=== PATIENT | female | born 1960 ===

== ENCOUNTER 2025-05-10 12:00 | Inpatient (IN) | payer OTHER ==
[~2025-05-10] VITALS: Ht 121.9 cm; Wt 67.6 kg
[~2025-05-10 12:00] MED LIST: CLONAZEPAM1 MG PO; LEVO-T50 MCG PO; PROAIR RESPICL90 MCG IH; RESTORIL30 M1 PO; ZESTORETIC 20-1 EACH PO; ZOCOR40 MG PO
[2025-05-10] MEDS ORDERED: NORVASC5 MG PO (12:01)
[2025-05-10] MEDS ORDERED: ROZEREM8 MG PO (12:01)
[2025-05-10 12:38] LABS: BASO % 1.0 % (0.1-1.2); EOS # 0.22 (0.04-0.54); EOS % 2.7 % (0.7-7.0); LYMPH # 2.83 (1.18-3.74); LYMPH % 35.3 % (19.3-53.1); MEAN PLATELET VOLUME 9.70 fl (9.4-12.4); MONO # 0.69 (0.24-0.82); MONO % 8.6 % (4.7-12.5); NEUT # 4.19 (1.56-6.13); NEUT % 52.3 % (34.0-71.1); RED CELL DISTRIBUTION WIDTH 13.6 % (11.6-14.4)
[2025-05-10 12:39] LABS: URINE APPEARANCE Clear; URINE BILIRRUBIN Negative (NEGATIVE); URINE BLOOD Small; URINE COLOR Yellow; URINE GLUCOSE Negative (NEGATIVE); URINE KETONE Negative (NEGATIVE); URINE LEUKOCYTE Negative; URINE NITRATE Negative; URINE PROTEIN Negative (NEGATIVE); URINE UROBILINOGEN 0.2 E.U./dl
[2025-05-10 12:43] LABS: URINE BACTERIA 35.9 uL (0.0-1933); URINE EPITHELIAL CELLS 6.6 uL (0.0-38.8); URINE RBC 37.3 uL (0.0-20.8); URINE WBC 3.9 uL (0.0-23.2)
[2025-05-10 12:48] LABS: URINE CAST 0.43 uL (0.0-1.40)
[2025-05-10 13:05] LABS: INR 0.99
[2025-05-10 13:06] LABS: ALT/SGPT 17.0 U/L (12-78); AST/SGOT 16.0 U/L (15-37); BILIRUBIN TOTAL 0.38 mg/dL (0.3-1.2); BUN CREA RATIO 19.0 (7.0-25.0); CREATININE SERUM 0.78 mg/dL (0.55-1.02); GFR 74.12; GLOBULINA 3.9 G/DL (2.4-3.5); GLUCOSE FASTING 98.0 mg/dL (65-100); OSMOLALITY SERUM 284.0 MOSM/KG (275-295)
[2025-05-17] MEDS ORDERED: METRONIDAZOLE/SODIUM CHLORIDE 500 MG/100 ML PIGGYBACK IV ONE (07:03)
[2025-05-17] MEDS ORDERED: CEFTRIAXONE SODIUM 2,000 MG VIAL ONE (07:03)
[2025-05-17] MEDS ORDERED: LIDOCAINE HCL 1%/EPINEPHRINE 20ML VIAL IJ ONE (07:45)
[2025-05-17] MEDS ORDERED: BUPIVACAINE HCL/Mpf 0.5% 10ML VIAL ONE (07:45)
[2025-05-17] MEDS ORDERED: SUGAMMADEX SODIUM 200 MG/2 ML VIAL IV ONE (10:19)
[2025-05-17] MEDS ORDERED: ACETAMINOPHEN 500 MG GEL..CAP PO SCH (10:49)
[2025-05-17] MEDS ORDERED: ONDANSETRON HCL 2 MG/ML VIAL IV PRN (11:00)
[2025-05-17] MEDS ORDERED: OxyCODONE HCL 5 MG TABLET (ROXICODONE) PO PRN (11:00)
[2025-05-17] MEDS ORDERED: RINGERS SOLUTION,LACTATED 1,000 ML IV SCH (11:00)
[2025-05-17] MEDS ORDERED: MORPHINE SULFATE 4 MG/ML CARTRIDGE IV PRN (11:00)
[2025-05-17] MEDS ORDERED: DEXTROSE 50 % IN WATER 0.5 G/ML DISP.SYRIN IV PRN (11:00)
[2025-05-17] MEDS ORDERED: ENALAPRILAT DIHYDRATE 1.25 MG/ML VIAL IV PRN (11:45)
[2025-05-17] MEDS ORDERED: ONDANSETRON HCL 2 MG/ML VIAL ONE (11:51)
[2025-05-17] MEDS ORDERED: ALBUTEROL SULFATE 3 ML/2.5 MG AMPUL.NEB IH SCH (12:00)
[2025-05-17] MEDS ORDERED: GABAPENTIN 300 MG CAPSULE PO SCH (13:00)
[2025-05-17] MEDS ORDERED: HYOSCYAMINE SULFATE 0.125 MG TAB.SUBL SL SCH (13:00)
[2025-05-17] MEDS ORDERED: ALBUTEROL SULFATE 3 ML/2.5 MG AMPUL.NEB IH ONE (13:19)
[2025-05-17 13:46] LABS: BASO % 0.3 % (0.1-1.2); EOS # 0.00 (0.04-0.54); EOS % 0.0 % (0.7-7.0); LYMPH # 0.43 (1.18-3.74); LYMPH % 3.7 % (19.3-53.1); MEAN PLATELET VOLUME 10.20 fl (9.4-12.4); MONO # 0.58 (0.24-0.82); MONO % 4.9 % (4.7-12.5); NEUT # 10.64 (1.56-6.13); NEUT % 90.8 % (34.0-71.1); RED CELL DISTRIBUTION WIDTH 13.4 % (11.6-14.4)
[2025-05-17 14:29] LABS: BUN CREA RATIO 18.0 (7.0-25.0); CREATININE SERUM 0.79 mg/dL (0.55-1.02); GFR 73.04; GLUCOSE FASTING 119.0 mg/dL (65-100); OSMOLALITY SERUM 285.0 MOSM/KG (275-295)
[2025-05-17] MEDS ORDERED: HYOSCYAMINE SULFATE 0.125 MG TAB.SUBL ONE (16:29)
[2025-05-17] MEDS ORDERED: CELECOXIB 200 MG CAPSULE PO ONE (16:29)
[2025-05-17] MEDS ORDERED: CELECOXIB 200 MG CAPSULE PO SCH (17:00)
[2025-05-17] MEDS ORDERED: LACTULOSE 20 G/30 ML BLIST.PACK PO SCH (17:00)
[2025-05-17 17:23] VITALS: BP 91/55; O2SAT 95
[2025-05-17] MEDS ORDERED: CLONAZEPAM 0.5 MG TABLET PO SCH (21:00)
[2025-05-17] MEDS ORDERED: AMLODIPINE BESYLATE 5 MG TABLET PO SCH (21:00)
[2025-05-17] MEDS ORDERED: LevETIRAcetam 500 MG TAB. PO SCH (21:00)
[2025-05-17] MEDS ORDERED: PATIENTS OWN MEDICATION (MEDICAMENTO EN PISO) PO SCH (21:00)
[2025-05-17] MEDS ORDERED: FAMOTIDINE/PF 20 MG/2 ML VIAL IV PUSH SCH (21:00)
[2025-05-18 01:03] VITALS: BP 107/63; O2SAT 98
[2025-05-18 06:52] LABS: BASO % 0.3 % (0.1-1.2); EOS # 0.00 (0.04-0.54); EOS % 0.0 % (0.7-7.0); LYMPH # 0.93 (1.18-3.74); LYMPH % 11.6 % (19.3-53.1); MEAN PLATELET VOLUME 10.80 fl (9.4-12.4); MONO # 0.61 (0.24-0.82); MONO % 7.6 % (4.7-12.5); NEUT # 6.41 (1.56-6.13); NEUT % 80.2 % (34.0-71.1); RED CELL DISTRIBUTION WIDTH 13.3 % (11.6-14.4)
[2025-05-18 07:20] VITALS: BP 102/67; O2SAT 97
[2025-05-18 07:29] LABS: BUN CREA RATIO 14.0 (7.0-25.0); CREATININE SERUM 0.74 mg/dL (0.55-1.02); GFR 78.76; GLUCOSE FASTING 107.0 mg/dL (65-100); OSMOLALITY SERUM 286.0 MOSM/KG (275-295)
[2025-05-18] MEDS ORDERED: LISINOPRIL 20 MG TABLET PO SCH (09:00)
[2025-05-18] MEDS ORDERED: HYDROCHLOROTHIAZIDE 12.5 MG CAPSULE PO SCH (09:00)
[2025-05-18] MEDS ORDERED: MAGNESIUM SULFATE IN WATER 50 ML IV NR (11:45)
[2025-05-18] MEDS ORDERED: Cyanocobalamin/Mecobalamin 1 TAB.SL SL NR (11:45)
[2025-05-18] MEDS ORDERED: SOD FERRIC GLUC COMPLX/SUCROSE 62.5 MG in 0.9 % SODIUM CHLORIDE 50 ML IV NR (11:45)
[2025-05-18] MEDS ORDERED: ALBUTEROL SULFATE 3 ML/2.5 MG AMPUL.NEB IH SCH (13:00)
[2025-05-18] MEDS ORDERED: SODIUM CL 0.9% 50 ML IV.SOLN IV ONE (14:19)
[2025-05-18 15:10] VITALS: BP 94/59; O2SAT 95
[2025-05-18] MEDS ORDERED: ENOXAPARIN SODIUM 40 MG/0.4 ML SYRINGE SUBCUTANEO SCH (17:00)
[2025-05-18] MEDS ORDERED: SIMVASTATIN 20 MG TABLET PO SCH (17:00)
[2025-05-18] MEDS ORDERED: GABAPENTIN 100 MG CAPSULE PO SCH (17:00)
[2025-05-18] MEDS ORDERED: GABAPENTIN 300 MG CAPSULE PO SCH (21:00)
[2025-05-19 00:30] VITALS: BP 109/78; O2SAT 97
[2025-05-19 06:24] LABS: BASO % 0.1 % (0.1-1.2); EOS # 0.00 (0.04-0.54); EOS % 0.0 % (0.7-7.0); LYMPH # 0.97 (1.18-3.74); LYMPH % 6.2 % (19.3-53.1); MEAN PLATELET VOLUME 10.90 fl (9.4-12.4); MONO # 0.94 (0.24-0.82); MONO % 6.0 % (4.7-12.5); NEUT # 13.65 (1.56-6.13); NEUT % 87.1 % (34.0-71.1); RED CELL DISTRIBUTION WIDTH 13.3 % (11.6-14.4)
[2025-05-19 07:04] LABS: BUN CREA RATIO 15.0 (7.0-25.0); CREATININE SERUM 0.75 mg/dL (0.55-1.02); GFR 77.55; GLUCOSE FASTING 82.0 mg/dL (65-100); OSMOLALITY SERUM 283.0 MOSM/KG (275-295)
[2025-05-19] MEDS ORDERED: SOD FERRIC GLUC COMPLX/SUCROSE 62.5 MG in 0.9 % SODIUM CHLORIDE 50 ML IV SCH (09:00)
[2025-05-19] MEDS ORDERED: Cyanocobalamin/Mecobalamin 1 TAB.SL SL SCH (09:00)
[2025-05-19] MEDS ORDERED: ENOXAPARIN SODIUM 40 MG/0.4 ML SYRINGE SUBCUTANEO SCH (09:00)
[2025-05-19 09:04] VITALS: BP 94/63; O2SAT 95
[2025-05-19 16:17] VITALS: BP 91/57; O2SAT 92
[2025-05-19] MEDS ORDERED: 0.9 % SODIUM CHLORIDE 500 ML IV SCH (18:15)
[2025-05-19 21:58] VITALS: BP 104/68; O2SAT 82
[2025-05-20 00:35] VITALS: BP 105/67; O2SAT 95
[2025-05-20 08:56] VITALS: BP 115/74; O2SAT 93
[2025-05-20 16:10] VITALS: BP 118/70; O2SAT 96
[2025-05-21 00:39] VITALS: BP 115/70; O2SAT 98
[2025-05-21 06:48] LABS: BASO % 0.3 % (0.1-1.2); EOS # 0.30 (0.04-0.54); EOS % 2.5 % (0.7-7.0); LYMPH # 1.22 (1.18-3.74); LYMPH % 10.4 % (19.3-53.1); MEAN PLATELET VOLUME 10.90 fl (9.4-12.4); MONO # 0.86 (0.24-0.82); MONO % 7.3 % (4.7-12.5); NEUT # 9.29 (1.56-6.13); NEUT % 78.8 % (34.0-71.1); RED CELL DISTRIBUTION WIDTH 13.0 % (11.6-14.4)
[2025-05-21 08:56] VITALS: BP 129/72; O2SAT 97
[2025-05-21 09:45] LABS: BUN CREA RATIO 19.0 (7.0-25.0); CREATININE SERUM 0.52 mg/dL (0.55-1.02); GFR 118.34; GLUCOSE FASTING 91.0 mg/dL (65-100); OSMOLALITY SERUM 285.0 MOSM/KG (275-295)
[2025-05-21] MEDS ORDERED: SIMETHICONE 125 MG CAPSULE PO SCH (13:00)
[2025-05-21 16:05] VITALS: BP 114/67; O2SAT 95
[2025-05-22 00:19] VITALS: BP 123/64; O2SAT 98
[2025-05-22 08:00] VITALS: BP 114/73; O2SAT 97
[2025-05-22 08:20] LABS: BASO % 0.3 % (0.1-1.2); EOS # 0.16 (0.04-0.54); EOS % 1.8 % (0.7-7.0); LYMPH # 1.25 (1.18-3.74); LYMPH % 13.8 % (19.3-53.1); MEAN PLATELET VOLUME 10.80 fl (9.4-12.4); MONO # 0.93 (0.24-0.82); MONO % 10.3 % (4.7-12.5); NEUT # 6.58 (1.56-6.13); NEUT % 72.8 % (34.0-71.1); RED CELL DISTRIBUTION WIDTH 13.4 % (11.6-14.4)
[2025-05-22 16:00] VITALS: BP 125/73; O2SAT 98
[2025-05-23 00:19] VITALS: BP 106/69; O2SAT 94
[2025-05-23 08:46] VITALS: BP 127/70; O2SAT 98
[2025-05-23 12:14] LABS: BASO % 0.4 % (0.1-1.2); EOS # 0.17 (0.04-0.54); EOS % 1.4 % (0.7-7.0); LYMPH # 1.21 (1.18-3.74); LYMPH % 9.6 % (19.3-53.1); MEAN PLATELET VOLUME 10.70 fl (9.4-12.4); MONO # 1.22 (0.24-0.82); MONO % 9.7 % (4.7-12.5); NEUT # 9.64 (1.56-6.13); NEUT % 76.9 % (34.0-71.1); RED CELL DISTRIBUTION WIDTH 14.4 % (11.6-14.4)
[2025-05-23 17:16] VITALS: BP 131/77; O2SAT 93
[2025-05-23] MEDS ORDERED: POLYETHYLENE GLYCOL 3350 17 GM BLIST.PACK PO SCH (21:00)
[2025-05-24 00:30] VITALS: BP 133/81; O2SAT 96
[2025-05-24 06:26] LABS: BASO % 0.5 % (0.1-1.2); EOS # 0.16 (0.04-0.54); EOS % 1.5 % (0.7-7.0); LYMPH # 1.48 (1.18-3.74); LYMPH % 13.6 % (19.3-53.1); MEAN PLATELET VOLUME 10.80 fl (9.4-12.4); MONO # 1.16 (0.24-0.82); MONO % 10.7 % (4.7-12.5); NEUT # 7.67 (1.56-6.13); NEUT % 70.7 % (34.0-71.1); RED CELL DISTRIBUTION WIDTH 14.2 % (11.6-14.4)
[2025-05-24 07:09] LABS: BUN CREA RATIO 17.0 (7.0-25.0); CREATININE SERUM 0.53 mg/dL (0.55-1.02); GFR 115.77; GLUCOSE FASTING 86.0 mg/dL (65-100); OSMOLALITY SERUM 279.0 MOSM/KG (275-295)
[2025-05-24 08:00] VITALS: BP 134/74; O2SAT 95
[2025-05-24] MEDS ORDERED: DIPHENHYDRAMINE HCL 50 MG/ML VIAL 1ML IV STA (12:53)
[2025-05-24] MEDS ORDERED: METHYLPREDNISOLONE SOD SUCC 40 MG VIAL IV STA (12:53)
[2025-05-24] MEDS ORDERED: DIATRIZOATE MEGLUMINE, SODIUM 30 ML BOTTLE PO NR (13:00)
[2025-05-24 17:04] VITALS: BP 130/69; O2SAT 94
[2025-05-25 00:30] VITALS: BP 136/78; O2SAT 97
[2025-05-25 08:48] LABS: BASO % 0.4 % (0.1-1.2); EOS # 0.07 (0.04-0.54); EOS % 0.6 % (0.7-7.0); LYMPH # 1.75 (1.18-3.74); LYMPH % 15.4 % (19.3-53.1); MEAN PLATELET VOLUME 11.10 fl (9.4-12.4); MONO # 0.98 (0.24-0.82); MONO % 8.6 % (4.7-12.5); NEUT # 8.12 (1.56-6.13); NEUT % 71.7 % (34.0-71.1); RED CELL DISTRIBUTION WIDTH 14.8 % (11.6-14.4)
[2025-05-25 08:51] VITALS: BP 138/74; O2SAT 95
[2025-05-25 10:26] LABS: BAND MAN 3.0 %; LYMPHOCYTE MAN 13.0 %; METAMYELOCYTE 1.0 %; MONOCYTE MAN 12.0 %; MYELOCYTE 2.0 %; NEUTROPHILS MAN 69.0 %
[2025-05-25] MEDS ORDERED: DOXYCYCLINE HYCLATE 100MG IV NR (13:30)
[2025-05-25] MEDS ORDERED: DOXYCYCLINE HYCLATE 100MG IV ONE ×2 (13:34→19:00)
[2025-05-25 16:01] VITALS: BP 137/72; O2SAT 94
[2025-05-25] MEDS ORDERED: VITAMIN B COMPLEX/LYSINE 1 ML ML PO SCH (17:00)
[2025-05-25] MEDS ORDERED: DOXYCYCLINE HYCLATE 100MG IV SCH (21:00)
[2025-05-26 02:19] VITALS: BP 135/70; O2SAT 95
[2025-05-26] MEDS ORDERED: DOXYCYCLINE HYCLATE 100MG IV ONE ×2 (06:03→14:46)
[2025-05-26 08:00] VITALS: BP 129/77; O2SAT 95
[2025-05-26 16:00] VITALS: BP 105/67; O2SAT 94
[2025-05-27] VITALS: BP 111/71; O2SAT 97
[2025-05-27] MEDS ORDERED: DOXYCYCLINE HYCLATE 100MG IV ONE (06:48)
[2025-05-27 06:50] LABS: BASO % 0.2 % (0.1-1.2); EOS # 0.05 (0.04-0.54); EOS % 0.4 % (0.7-7.0); LYMPH # 1.04 (1.18-3.74); LYMPH % 8.5 % (19.3-53.1); MEAN PLATELET VOLUME 10.70 fl (9.4-12.4); MONO # 0.73 (0.24-0.82); MONO % 5.9 % (4.7-12.5); NEUT # 10.29 (1.56-6.13); NEUT % 83.7 % (34.0-71.1); RED CELL DISTRIBUTION WIDTH 14.7 % (11.6-14.4)
[2025-05-27 07:44] LABS: BUN CREA RATIO 13.0 (7.0-25.0); CREATININE SERUM 0.47 mg/dL (0.55-1.02); GFR 132.99; GLUCOSE FASTING 100.0 mg/dL (65-100); OSMOLALITY SERUM 281.0 MOSM/KG (275-295)
[2025-05-27 08:13] VITALS: BP 121/71; O2SAT 95
[2025-05-27] MEDS ORDERED: VANCOMYCIN HCL 125 MG CAPSULE PO NR (09:00)
[2025-05-27] MEDS ORDERED: VANCOMYCIN HCL 125 MG CAPSULE PO SCH (14:00)
[2025-05-27 16:28] VITALS: BP 95/57; O2SAT 97
[2025-05-27] MEDS ORDERED: LACTOBACILLUS ACIDOPHILUS 1 CAP CAP PO SCH (17:00)
[2025-05-27] MEDS ORDERED: SOD FERRIC GLUC COMPLX/SUCROSE 62.5 MG in 0.9 % SODIUM CHLORIDE 50 ML IV SCH (17:00)
[2025-05-27] MEDS ORDERED: LevETIRAcetam 500 MG TAB. PO SCH (21:00)
[2025-05-28 00:58] VITALS: BP 114/72; O2SAT 96
[2025-05-28] MEDS ORDERED: SOD FERRIC GLUC COMPLX/SUCROSE 62.5 MG in 0.9 % SODIUM CHLORIDE 50 ML IV SCH (09:00)
[2025-05-28 09:39] VITALS: BP 115/75; O2SAT 95
[2025-05-28 17:32] VITALS: BP 119/67; O2SAT 95
[2025-05-29 00:02] VITALS: BP 108/64; O2SAT 97
[2025-05-29 09:30] LABS: BASO % 0.3 % (0.1-1.2); EOS # 0.10 (0.04-0.54); EOS % 0.9 % (0.7-7.0); LYMPH # 0.98 (1.18-3.74); LYMPH % 8.4 % (19.3-53.1); MEAN PLATELET VOLUME 11.00 fl (9.4-12.4); MONO # 1.11 (0.24-0.82); MONO % 9.5 % (4.7-12.5); NEUT # 9.43 (1.56-6.13); NEUT % 80.5 % (34.0-71.1); RED CELL DISTRIBUTION WIDTH 14.7 % (11.6-14.4)
[2025-05-29 09:42] VITALS: BP 116/69; O2SAT 98
[2025-05-29 09:49] LABS: BUN CREA RATIO 12.0 (7.0-25.0); CREATININE SERUM 0.51 mg/dL (0.55-1.02); GFR 121.02; GLUCOSE FASTING 90.0 mg/dL (65-100); OSMOLALITY SERUM 278.0 MOSM/KG (275-295)
[2025-05-29 17:10] VITALS: BP 133/73; O2SAT 95
[2025-05-30 00:47] VITALS: BP 127/69; O2SAT 95
[2025-05-30 06:46] LABS: BASO % 0.5 % (0.1-1.2); EOS # 0.10 (0.04-0.54); EOS % 1.0 % (0.7-7.0); LYMPH # 1.44 (1.18-3.74); LYMPH % 14.9 % (19.3-53.1); MEAN PLATELET VOLUME 10.20 fl (9.4-12.4); MONO # 1.28 (0.24-0.82); NEUT # 6.75 (1.56-6.13); NEUT % 69.9 % (34.0-71.1); RED CELL DISTRIBUTION WIDTH 14.5 % (11.6-14.4)
[2025-05-30 07:12] LABS: MONO % 13.3 % (4.7-12.5)
[2025-05-30 08:00] VITALS: BP 116/72; O2SAT 94
[2025-05-30 16:49] VITALS: BP 115/67; O2SAT 94
[2025-05-31 01:15] VITALS: BP 102/57; O2SAT 94
[2025-05-31] MEDS ORDERED: CHOLESTYRAMINE/ASPARTAME LIGHT 4 G/PKT PACKET PO NR (07:00)
[2025-05-31 08:00] VITALS: BP 103/62; O2SAT 94
[2025-05-31 16:15] VITALS: BP 99/61; O2SAT 94
[2025-05-31] MEDS ORDERED: CHOLESTYRAMINE/ASPARTAME LIGHT 4 G/PKT PACKET PO SCH (18:29)
[2025-06-01 00:30] VITALS: BP 109/63; O2SAT 95
[2025-06-01] MEDS ORDERED: CHOLESTYRAMINE/ASPARTAME LIGHT 4 G/PKT PACKET PO SCH (09:00)
[2025-06-01 09:42] VITALS: BP 109/70; O2SAT 94
[2025-06-01 16:14] VITALS: BP 102/66; O2SAT 95
[2025-06-01] MEDS ORDERED: ONDANSETRON HCL 4 MG in DEXTROSE 5 % IN WATER 50 ML IV SCH (17:00)
[2025-06-02 01:25] VITALS: BP 105/61; O2SAT 97
[2025-06-02 08:00] VITALS: BP 99/61; O2SAT 96
[2025-06-02 08:35] LABS: BASO % 0.5 % (0.1-1.2); EOS # 0.13 (0.04-0.54); EOS % 1.2 % (0.7-7.0); LYMPH # 1.72 (1.18-3.74); LYMPH % 16.2 % (19.3-53.1); MEAN PLATELET VOLUME 10.50 fl (9.4-12.4); MONO # 1.71 (0.24-0.82); NEUT # 6.89 (1.56-6.13); NEUT % 65.0 % (34.0-71.1); RED CELL DISTRIBUTION WIDTH 14.6 % (11.6-14.4)
[2025-06-02 08:41] LABS: MONO % 16.1 % (4.7-12.5)
[2025-06-02 08:51] LABS: ALT/SGPT 11.0 U/L (12-78); AST/SGOT 10.0 U/L (15-37); BILIRUBIN TOTAL 0.63 mg/dL (0.3-1.2); BUN CREA RATIO 16.0 (7.0-25.0); CREATININE SERUM 0.57 mg/dL (0.55-1.02); GFR 106.45; GLOBULINA 3.7 G/DL (2.4-3.5); GLUCOSE FASTING 76.0 mg/dL (65-100); OSMOLALITY SERUM 273.0 MOSM/KG (275-295)
[2025-06-02 16:00] VITALS: BP 93/57; O2SAT 94
[2025-06-03] VITALS: BP 89/50; O2SAT 95
[2025-06-03 08:00] VITALS: BP 98/65; O2SAT 96
[2025-06-03] MEDS ORDERED: LOPERAMIDE HCL 2 MG CAPSULE PO PRN (15:30)
[2025-06-03 16:30] VITALS: BP 105/60; O2SAT 95
[2025-06-04] MEDS ORDERED: HYOSCYAMINE SULFATE 0.125 MG TAB.SUBL SL SCH
[2025-06-04 00:49] VITALS: BP 108/62; O2SAT 95
[2025-06-04 08:00] VITALS: BP 124/69; O2SAT 98
[2025-06-04 16:55] VITALS: BP 108/63; O2SAT 100
[2025-06-05 01:18] VITALS: BP 108/69; O2SAT 97
[2025-06-05 08:00] VITALS: BP 121/69; O2SAT 95
[2025-06-05 16:50] VITALS: BP 117/72; O2SAT 95
[2025-06-06 00:30] VITALS: BP 109/63; O2SAT 96
[2025-06-06 08:00] VITALS: BP 134/77; O2SAT 95
[2025-06-06 08:41] LABS: BASO % 0.6 % (0.1-1.2); EOS # 0.09 (0.04-0.54); EOS % 1.4 % (0.7-7.0); LYMPH # 1.67 (1.18-3.74); LYMPH % 26.0 % (19.3-53.1); MEAN PLATELET VOLUME 9.40 fl (9.4-12.4); MONO # 0.95 (0.24-0.82); NEUT # 3.41 (1.56-6.13); NEUT % 53.2 % (34.0-71.1); RED CELL DISTRIBUTION WIDTH 14.8 % (11.6-14.4)
[2025-06-06] MEDS ORDERED: LOPERAMIDE HCL 2 MG CAPSULE PO SCH (09:00)
[2025-06-06 09:26] LABS: ALT/SGPT 13.0 U/L (12-78); AST/SGOT 9.0 U/L (15-37); BILIRUBIN TOTAL 0.4 mg/dL (0.3-1.2); BUN CREA RATIO 3.0 (7.0-25.0); CREATININE SERUM 0.61 mg/dL (0.55-1.02); GFR 98.43; GLOBULINA 3.9 G/DL (2.4-3.5); GLUCOSE FASTING 89.0 mg/dL (65-100); OSMOLALITY SERUM 275.0 MOSM/KG (275-295)
[2025-06-06 09:41] LABS: BAND MAN 5.0 %; EOSINOPHIL MAN 2.0 %; LYMPHOCYTE MAN 34.0 %; MONO % 14.8 % (4.7-12.5); MONOCYTE MAN 9.0 %; NEUTROPHILS MAN 39.0 %
[2025-06-06] MEDS ORDERED: LEVO-T50 MCG PO (14:43)
[2025-06-06] MEDS ORDERED: DULOXETINE HCL30 MG PO (14:43)
[2025-06-06] MEDS ORDERED: VANCOMYCIN HCL125 MG PO (14:43)
[2025-06-06] MEDS ORDERED: CHOLESTYRAMINE L4 GM PO (14:43)
[2025-06-06] MEDS ORDERED: INTESTINEX680 M1 PO (14:43)
[2025-06-06] MEDS ORDERED: KEPPRA500 MG PO (14:43)
[2025-06-06] MEDS ORDERED: SIMVASTATIN20 MG PO (14:43)
[2025-06-06] MEDS ORDERED: HYOSCYAMINE0.125 M1 SL (14:43)
[2025-06-06] MEDS ORDERED: SIMETHICONE125 M1 PO (14:43)
[2025-06-06] MEDS ORDERED: ROZEREM8 MG PO (14:43)
[2025-06-06] MEDS ORDERED: ZESTORETIC 20-1 EACH PO (14:43)
[2025-06-06] MEDS ORDERED: NORVASC5 MG PO (14:43)
[2025-06-06] MEDS ORDERED: LOPERAMIDE2 MG PO (14:43)
[2025-06-06] MEDS ORDERED: FAMOTIDINE20 MG PO (14:43)
== END 2025-06-06 15:39 | disposition home or self-care (01) | DRG 330 ==
LOC: O/R 05-17 06:00 → SURG 05-17 06:00 → SURH 05-17 07:00 → SURG 05-17 15:54 → SURH 05-18 21:56
PROVIDERS: Internal Medicine; Internal Medicine Geriatric Medicine; ADMIT Colon & Rectal Surgery; ATTEND Colon & Rectal Surgery
PROC: 0DBP4ZZ Excision of Rectum, Percutaneous Endoscopic Approach (ICD-10-PCS; 2025-05-17)
PROC: 8E0W4CZ Robotic Assisted Procedure of Trunk Region, Percutaneous Endoscopic Approach (ICD-10-PCS; 2025-05-17)
PROC: 0DTN4ZZ Resection of Sigmoid Colon, Percutaneous Endoscopic Approach (ICD-10-PCS; principal; 2025-05-17 07:00)
PROC: 0D9670Z Drainage of Stomach with Drainage Device, Via Natural or Artificial Opening (ICD-10-PCS; 2025-05-19)
PROC: 30233N1 Transfusion of Nonautologous Red Blood Cells into Peripheral Vein, Percutaneous Approach (ICD-10-PCS; 2025-05-22)
PROC: BW21YZZ Computerized Tomography (CT Scan) of Abdomen and Pelvis using Other Contrast (ICD-10-PCS; 2025-05-24)
DX: K57.20 Diverticulitis of large intestine with perforation and abscess without bleeding (principal); K62.5 Hemorrhage of anus and rectum; K92.1 Melena; K62.4 Stenosis of anus and rectum; D64.9 Anemia, unspecified; D72.829 Elevated white blood cell count, unspecified; B96.89 Other specified bacterial agents as the cause of diseases classified elsewhere; I80.9 Phlebitis and thrombophlebitis of unspecified site
CPT/HCPCS: 44207; 44213; 74177; 36430; S2900